=== PATIENT | male | born 1980 | race Caucasian/White ===

== ENCOUNTER → 2017-08-05 | Day surgery (SDC) | payer BC, OTHER ==
[~2017-08-05] VITALS: Ht 188 cm; Wt 101.6 kg
[~2017-08-05] MED LIST: ACETAMINOPHEN/HYDROcodone 325 MG/5 MG TAB PO PRN; ACETAMINOPHEN/HYDROcodone 325 MG/7.5 MG TAB ONE; APREPITANT 40 MG CAP ONE; BETAMETHASONE SOD PHOS/ACETATE SUSP 30 MG/5 ML VIAL ONE; BUPIVACAINE HCL PF 0.5% 30 ML VIAL ONE; CHLORHEXIDINE GLUCONATE 2 % 1 PACK (2 CLOTHS) TOPICAL PRN; CHLORHEXIDINE GLUCONATE 4% SOLN 120 ML BTL TOPICAL SCH; CYCL5TAB PO; DEXAMETHASONE SOD PHOS 4 MG/ML VIAL IV ONE; DO NOT ADM ANY ANTICOAGULANT DRUGS PRN; FAMOTIDINE 20 MG/2 ML VIAL ONE; GABA300C5 PO; GELATIN 12 MM/7 MM FOAM ONE; GENTAMICIN SULFATE 80 MG/2 ML VIAL ONE; KETOROLAC TROMETHAMINE 30 MG/ML (IVP) VIAL IV PUSH ONE; LACTATED RINGER'S 1000 ML IV PRN; LIDOCAINE 1%/EPINEPHrine 1:100,000 SOLN 30 ML VIAL ONE; LIDOCAINE HCL 1% PF 5 ML SYRINGE OTHER ONE; MELO15TA20 PO; METOPROLOL TARTRATE 25 MG TAB PO PRN; MIDAZOLAM HCL 2 MG/2 ML VIAL ONE; MORPHINE SULFATE 4 MG/ML INJ IV PUSH PRN; NORC5TAB PO; ONDA4TAB7 SL; ONDANSETRON HCL 4 MG/2 ML VIAL IV ONE; ONDANSETRON HCL 4 MG/2 ML VIAL IV PUSH PRN; ONDANSETRON ODT 4 MG TAB ONE; PHENYLEPH/NS 1000 MCG/10 ML SYR IV ONE; POVIDONE IODINE 5% (ANTISEPSIS KIT) 4 APPLICATIONS EACH NARE PRN; PROPOFOL 200 MG/20 ML AMP IV ONE; Post-op Orders (for Pharmacy) XX ONE; ROCURONIUM INJ 50 MG/5 ML SYRINGE IV PUSH ONE; SODIUM CHLORID 0.9% 500 ML IV PRN; SODIUM CHLORIDE 0.9% FLUSH 10 ML FLUSH IV FLUSH PRN; SODIUM CHLORIDE 0.9% FLUSH 10 ML FLUSH IV FLUSH SCH; TRAM50TA PO; ceFAZolin 2 GM PREMIX 50 ML IV SCH; ceFAZolin INJ 1,000 MG VIAL IV ONE
--- NOTE | 2017-08-05 17:11 | HHI.PR ---
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
[2017-08-05 19:15] VITALS: BP 118/57; PULSE 80; RESP 16; TEMP 98.6; O2SAT 95
== END | disposition home or self-care (01) ==
LOC: HSDC 10:42
PROVIDERS: ATTEND Orthopaedic Surgery Orthopaedic Surgery of the Spine
DX: M51.27 Other intervertebral disc displacement, lumbosacral region (principal)
CPT/HCPCS: 00630; 63030; 76000; J0690; J0702; J1100; J1580; J1885; J2250; J2370; J2405; J3010; J7120; J8501